=== PATIENT | female | born 1995 | race Caucasian/White ===

== ENCOUNTER 2023-04-06 15:21 | Observation (INO) | payer OTHER ==
[~2023-04-06] VITALS: Ht 152.4 cm; Wt 83.9 kg
[2023-04-06] MEDS ORDERED: PREN1TAB23 PO (19:24)
== END 2023-04-06 19:45 | disposition home or self-care (01) ==
LOC: 8 EST LDRP 15:21
PROVIDERS: ADMIT Specialist; ATTEND Specialist
DX: O26.893 Other specified pregnancy related conditions, third trimester (principal); R10.2 Pelvic and perineal pain; Z3A.35 35 weeks gestation of pregnancy; W19.XXXA Unspecified fall, initial encounter; Y92.89 Other specified places as the place of occurrence of the external cause; Y93.89 Activity, other specified; Y99.8 Other external cause status
CPT/HCPCS: 59025; 99281; 76818; 76805; G0378 ×2; G0379